=== PATIENT | male | born 1970 | race Caucasian/White ===

== ENCOUNTER 2019-11-20 10:38 | Emergency (ER) | payer SELFPAY ==
[~2019-11-20] VITALS: Ht 170.2 cm; Wt 76.7 kg
[2019-11-20 10:43] VITALS: BP 133/83
== END 2019-11-20 11:35 | disposition home or self-care (01) ==
LOC: ED 10:38
DX: S52.502A Unspecified fracture of the lower end of left radius, initial encounter for closed fracture (principal); X58.XXXA Exposure to other specified factors, initial encounter; Y93.89 Activity, other specified; Y92.89 Other specified places as the place of occurrence of the external cause; Y99.8 Other external cause status
CPT/HCPCS: A4570; Q0092